=== PATIENT | female | born 1960 | race Caucasian/White ===

== ENCOUNTER 2018-07-16 07:16 | Day surgery (SDC) | payer OTHER ==
[~2018-07-16] VITALS: Ht 162.6 cm; Wt 87.5 kg
[2018-07-16] MEDS ORDERED: CYCL10TA13 PO (08:37)
[2018-07-16] MEDS ORDERED: OMEP40EC14 PO (08:37)
[2018-07-16] MEDS ORDERED: TURM500C7 PO (08:37)
[2018-07-16] MEDS ORDERED: LYR75 PO (08:37)
[2018-07-16] MEDS ORDERED: MONT10TA35 PO (08:37)
[2018-07-16] MEDS ORDERED: PRAM0.5T4 PO (08:37)
[2018-07-16] MEDS ORDERED: VARE1TAB PO (08:37)
[2018-07-16] MEDS ORDERED: HYDR-5092 PO (08:37)
[2018-07-16] MEDS ORDERED: ATOR20TA40 PO (08:37)
[2018-07-16] MEDS ORDERED: MILK175T2 PO (08:37)
[2018-07-16] MEDS ORDERED: CETI10TA71 PO (08:37)
[2018-07-16] MEDS ORDERED: KETOROLAC 30 MG/ML VIAL ONE (08:46)
[2018-07-16] MEDS ORDERED: LIDOCAINE 2% 100 MG/5 ML UJET TP ONE (08:46)
[2018-07-16] MEDS ORDERED: fentaNYL 0.05 MG/ML VIAL ONE (09:25)
[2018-07-16] MEDS ORDERED: MIDAZOLAM 2 MG/2 ML VIAL ONE (09:26)
[2018-07-16] MEDS ORDERED: fentaNYL 0.05 MG/ML VIAL IVP ONE (14:55)
[2018-07-16] MEDS ORDERED: MIDAZOLAM 2 MG/2 ML VIAL IVP ONE (14:55)
[2018-07-16] MEDS ORDERED: fentaNYL 0.05 MG/ML VIAL IVP SCH (15:15)
[2018-07-16] MEDS ORDERED: MIDAZOLAM 2 MG/2 ML VIAL IVP SCH (15:15)
== END 2018-07-16 10:30 | disposition home or self-care (01) ==
LOC: MDS 07:16 → MMU 07:24 → MDS 10:30
PROVIDERS: ATTEND Internal Medicine Gastroenterology
DX: K57.30 Diverticulosis of large intestine without perforation or abscess without bleeding (principal); E78.00 Pure hypercholesterolemia, unspecified; Z79.899 Other long term (current) drug therapy; Z88.8 Allergy status to other drugs, medicaments and biological substances; Z98.890 Other specified postprocedural states; Z87.440 Personal history of urinary (tract) infections; Z72.89 Other problems related to lifestyle; Z87.891 Personal history of nicotine dependence; Z85.118 Personal history of other malignant neoplasm of bronchus and lung
CPT/HCPCS: 45378; J2250; J3010; J1885